=== PATIENT | male | born 1980 | race Two or more races ===

== ENCOUNTER 2021-12-05 04:25 | Day surgery (SDC) | payer BC ==
[2021-11-30 18:31] VITALS: BMI 30.1
[2021-12-05] MEDS ORDERED: PROPOFOL 20 ML ONE (16:00)
[2021-12-05] MEDS ORDERED: KETOROLAC TROMETHAMINE 30 MG/1 ML VIAL ONE (16:06)
[2021-12-05] MEDS ORDERED: DEXAMETHASONE SOD PHOSPHATE 4 MG/1 ML VIAL ONE (16:06)
[2021-12-05 17:12] VITALS: BP 132/84; PULSE 89; TEMP 97.3
== END 2021-12-05 17:12 | disposition home or self-care (01) ==
LOC: JASU-SURG 04:25
PROVIDERS: ATTEND Urology
PROC: 0TF4XZZ Fragmentation in Left Kidney Pelvis, External Approach (ICD-10-PCS; principal; 2021-12-05 14:00)
DX: N20.0 Calculus of kidney (principal)